=== PATIENT | female | born 1995 | race Caucasian/White ===

== ENCOUNTER 2018-11-02 13:24 | Emergency (ER) | payer SELFPAY ==
[~2018-11-02] VITALS: Wt 70.0 kg
[2018-11-02 13:28] VITALS: BP 132/70; PULSE 99; RESP 18
[2018-11-02] MEDS ORDERED: LORA0.5T PO (15:53)
--- NOTE | 2018-11-02 21:54 | ERD ---
ER Documentation Chief Complaint Chief Complaint FEELS ANXIOUS, CAN NOT BREATH X 1 WEEK HPI 23-year-old female presents for shortness of breath times 1 week. She states that she has been feeling anxious. She states that she gets these attacks that cause her to feel short of breath, numbness in her hands and stomach and back. Episodes last for about a minute. Denies any abdominal pain, nausea, vomiting. She did have a thyroid panel checked with her PCP recently which was negative. ROS All systems reviewed and are negative except as per history of present illness. Medications Home Meds Active Scripts Lorazepam* (Lorazepam*) 0.5 Mg Tablet, 0.5 MG PO Q8 PRN for panic attack, #10 TAB Prov:DON ANDREWS DO 11/02/18 Allergies Allergies: Coded Allergies: No Known Allergy (Unverified , 11/02/18) PMhx/Soc Medical and Surgical Hx: pt denies Medical Hx, pt denies Surgical Hx Hx Alcohol Use: No Hx Substance Use: No Hx Tobacco Use: No Smoking Status: Never smoker Physical Exam Vitals Vital Signs Date Temp Pulse Resp B/P (MAP) Pulse Ox O2 O2 Flow FiO2 Time Delivery Rate 11/02/18 98.1 99 18 132/70 99 13:28 (90) Physical Exam Const: No acute distress Head: Atraumatic Eyes: Normal Conjunctiva ENT: Normal External Ears, Nose and Mouth. Neck: Full range of motion. No meningismus. Resp: Clear to auscultation bilaterally Cardio: Regular rate and rhythm, no murmurs Abd: Soft, non tender, non distended. Normal bowel sounds Skin: No petechiae or rashes Back: No midline or flank tenderness Ext: No cyanosis, or edema Neur: Awake and alert Psych: Normal Mood and Affect Procedures/MDM Medical Decision Making: Differential diagnosis includes but not limited to anxiety, ACS, PE. Patient appeared well on physical exam. Given patient's age and lack of risk factor suspicion for ACS. Patient also has no risk factors for pulmonary embolism. EKG showed normal sinus rhythm, no ST or T wave changes. Patient likely has panic disorder Prescription(s): Patient given prescription for Ativan short course low-dose. Patient advised to follow up with PCP in 1-2 days. Patient advised to return to ED for new or worsening symptoms. Patient stable on discharge from the ED. Disclaimer: Inadvertent spelling and grammatical errors are likely due to EHR/dictation software use and do not reflect on the overall quality of patient care. Also, please note that the electronic time recorded on this note does not necessarily reflect the actual time of the patient encounter. Departure Diagnosis: Primary Impression: Chest pain Additional Impression: Anxiety Condition: Fair Patient Instructions: Anxiety Reaction Referrals: [facility] YOU HAVE RECEIVED A MEDICAL SCREENING EXAM AND THE RESULTS INDICATE THAT YOU DO NOT HAVE A CONDITION THAT REQUIRES URGENT TREATMENT IN THE EMERGENCY DEPARTMENT. FURTHER EVALUATION AND TREATMENT OF YOUR CONDITION CAN WAIT UNTIL YOU ARE SEEN IN YOUR DOCTORS OFFICE WITHIN THE NEXT 1-2 DAYS. IT IS YOUR RESPONSIBILITY TO MAKE AN APPOINTMENT FOR FOLOW-UP CARE. IF YOU HAVE A PRIMARY DOCTOR --you should call your primary doctor and schedule an appointment IF YOU DO NOT HAVE A PRIMARY DOCTOR YOU CAN CALL OUR PHYSICIAN REFERRAL HOTLINE AT IF YOU CAN NOT AFFORD TO SEE A PHYSICIAN YOU CAN CHOSE FROM THE FOLLOWING [facility] [address] [facility]. [facility] [address] [facility] [facility] [address] [facility] [facility] [address] [facility]. [facility] [address] [facility]. [facility]. [address] Additional Instructions: Call your primary care doctor TOMORROW for an appointment during the next 1-2 days.See the doctor sooner or return here if your condition worsens before your appointment time. referral to psychology DON ANDREWS DO Nov 02, 2018 21:54
== END 2018-11-02 16:18 | disposition home or self-care (01) ==
LOC: FTE 13:24
DX: R07.9 Chest pain, unspecified (principal)
CPT/HCPCS: 93005